=== PATIENT | female | born 1940 | race Hispanic/Latino ===

== ENCOUNTER 2023-03-25 20:05 | Emergency (ER) | payer MEDICARE ==
[~2023-03-25] VITALS: Ht 165.1 cm; Wt 65.3 kg
[2023-03-25 20:54] VITALS: BP 131/79; PULSE 73; RESP 20
[2023-03-25] MEDS ORDERED: HYDROCODONE/ACETAMINOPHEN 5/325 MG TAB PO ONE (22:00)
[2023-03-26] MEDS ORDERED: MELO-106 PO (01:33)
== END 2023-03-26 02:30 | disposition home or self-care (01) ==
LOC: EDH 20:05
DX: S00.83XA Contusion of other part of head, initial encounter (principal); M47.812 Spondylosis without myelopathy or radiculopathy, cervical region; F02.80 Dementia in other diseases classified elsewhere, unspecified severity, without behavioral disturbance, psychotic disturbance, mood disturbance, and anxiety; G30.9 Alzheimer's disease, unspecified; W01.0XXA Fall on same level from slipping, tripping and stumbling without subsequent striking against object, initial encounter; Y93.89 Activity, other specified; Y92.89 Other specified places as the place of occurrence of the external cause; Y99.8 Other external cause status
CPT/HCPCS: 70450; 71045; 72125; 72170; 73564

== ENCOUNTER → 2024-04-28 | Outpatient (CLI) | payer MEDICARE ==
[~2024-04-28] MED LIST: MELO-106 PO
== END | disposition home or self-care (01) ==
LOC: RAH 09:29
PROVIDERS: ATTEND Family Medicine
DX: R13.10 Dysphagia, unspecified (principal)
CPT/HCPCS: 74220